=== PATIENT | female | born 1990 ===

== ENCOUNTER 2024-05-28 09:30 | Inpatient (IN) | payer OTHER ==
[~2024-05-28] VITALS: Ht 165.1 cm; Wt 73.0 kg
[2024-05-28 09:45] LABS: URINE APPEARANCE Clear; URINE BILIRRUBIN Negative (NEGATIVE); URINE BLOOD Negative; URINE COLOR Yellow; URINE GLUCOSE Negative (NEGATIVE); URINE LEUKOCYTE Trace; URINE NITRATE Negative; URINE PROTEIN Negative (NEGATIVE); URINE UROBILINOGEN 0.2 E.U./dl
[2024-05-28 09:46] LABS: HEMATOCRIT 40.8 % (36.0-45.00); HEMOGLOBIN 13.4 g/dL (12.0-15.00); MEAN CELL VOLUME 80.3 fL (80.00-100.00); MEAN CORPUSCULAR HEMOGLOBIN 26.5 pg (27.00-32.0); PLATELET COUNT 315 K/uL (150-450); RED BLOOD COUNT 5.08 M/uL (4.00-6.00); RED CELL DISTRIBUTION WIDTH 14.5 % (11.5-14.5)
[2024-05-28 09:49] LABS: URINE BACTERIA 852.8 uL (0.0-1933); URINE EPITHELIAL CELLS 31.8 uL (0.0-38.8); URINE RBC 7.1 uL (0.0-20.8); URINE WBC 7.7 uL (0.0-23.2)
[2024-05-28 10:17] LABS: INR 1.02; PARTIAL THROMBOPLASTIN TIME 34.5 SECONDS (22.0-34.0); PROTHROMBIN TIME 10.7 SECONDS (9.0-11.5)
[2024-05-28 10:19] LABS: ALBUMIN 3.9 gm/dL (3.4-5.0); BILIRUBIN TOTAL 0.43 mg/dL (0.3-1.2); CALCIUM 9.4 mg/dL (8.5-10.1); CREATININE SERUM 0.6 mg/dL (0.55-1.02); GFR 115.85; GLOBULINA 3.9 G/DL (2.4-3.5); POTASSIUM 4.12 mEq/L (3.5-5.1); TOTAL PROTEIN 7.8 gm/dL (6.4-8.2)
[2024-06-02] MEDS ORDERED: ONDANSETRON HCL 2 MG/ML VIAL IV SCH (16:00)
[2024-06-02] MEDS ORDERED: VISTASEAL DUAL APPICATOR 1 EACH APPL TOP ONE (16:30)
[2024-06-02] MEDS ORDERED: THROMBIN,HU/FIBRINOGEN/CALCIUM 10 ML SYRINGE TOP ONE (16:30)
[2024-06-02] MEDS ORDERED: CEFTRIAXONE SODIUM 2,000 MG VIAL IV ONE (16:30)
[2024-06-02] MEDS ORDERED: METRONIDAZOLE/SODIUM CHLORIDE 500 MG/100 ML PIGGYBACK IV ONE (16:30)
[2024-06-02] MEDS ORDERED: SUGAMMADEX SODIUM 200 MG/2 ML VIAL IV NR (16:30)
[2024-06-02] MEDS ORDERED: RINGERS SOLUTION,LACTATED 1,000 ML IV SCH (16:33)
[2024-06-02] MEDS ORDERED: MORPHINE SULFATE 4 MG/ML CARTRIDGE IV PRN (16:45)
[2024-06-02] MEDS ORDERED: CELECOXIB 200 MG CAPSULE PO SCH (17:00)
[2024-06-02 18:37] LABS: HEMATOCRIT 40.2 % (36.0-45.00); HEMOGLOBIN 13.3 g/dL (12.0-15.00); MEAN CELL VOLUME 80.2 fL (80.00-100.00); MEAN CORPUSCULAR HEMOGLOBIN 26.5 pg (27.00-32.0); PLATELET COUNT 297 K/uL (150-450); RED BLOOD COUNT 5.01 M/uL (4.00-6.00); RED CELL DISTRIBUTION WIDTH 14.5 % (11.5-14.5)
[2024-06-02 18:59] LABS: CALCIUM 9.5 mg/dL (8.5-10.1); CREATININE SERUM 0.63 mg/dL (0.55-1.02); GFR 109.51; POTASSIUM 4.45 mEq/L (3.5-5.1)
[2024-06-02] MEDS ORDERED: CEFOXITIN SODIUM 2,000 MG VIAL IV SCH (20:00)
[2024-06-02] MEDS ORDERED: ACETAMINOPHEN 325 MG TABLET PO SCH (20:00)
[2024-06-02] MEDS ORDERED: GABAPENTIN 100 MG CAPSULE PO SCH (21:00)
[2024-06-03 06:13] LABS: HEMATOCRIT 36.3 % (36.0-45.00); HEMOGLOBIN 12.2 g/dL (12.0-15.00); MEAN CELL VOLUME 81.3 fL (80.00-100.00); MEAN CORPUSCULAR HEMOGLOBIN 27.3 pg (27.00-32.0); MEAN CORPUSCULAR HGB CONC 33.6 g/dl (32.0-36.0); PLATELET COUNT 262 K/uL (150-450); RED BLOOD COUNT 4.47 M/uL (4.00-6.00); RED CELL DISTRIBUTION WIDTH 14.1 % (11.5-14.5)
== END 2024-06-03 11:20 | disposition home or self-care (01) | DRG 743 ==
LOC: O/R 06-02 07:48 → SURH 06-02 09:30 → OB/GYN 06-02 18:22
PROVIDERS: Surgery; Urology; ADMIT Obstetrics & Gynecology Gynecology; ATTEND Obstetrics & Gynecology Gynecology
PROC: 0UT94ZZ Resection of Uterus, Percutaneous Endoscopic Approach (ICD-10-PCS; principal; 2024-06-02 13:30)
PROC: 0UT74ZZ Resection of Bilateral Fallopian Tubes, Percutaneous Endoscopic Approach (ICD-10-PCS; 2024-06-02 13:30)
PROC: 0TJB8ZZ Inspection of Bladder, Via Natural or Artificial Opening Endoscopic (ICD-10-PCS; 2024-06-02 13:30)
DX: N80.03 Adenomyosis of the uterus (principal); N94.5 Secondary dysmenorrhea; Z20.822 Contact with and (suspected) exposure to COVID-19; N72 Inflammatory disease of cervix uteri